=== PATIENT | male | born 1985 | race Caucasian/White ===

== ENCOUNTER 2020-07-23 15:38 | Outpatient (REF) | payer MEDICARE, MEDICAID, SELFPAY ==
[2020-07-23 17:30] LABS: Basophils Percent Auto 0.5 % (0-2); Imm Gran Abs Auto 0.04 X10*3/uL (0.00-0.03); Imm Gran Pct Auto 0.7 % (0.0-0.4); Monocytes Absolute Auto 0.3 X10*3/uL (0.1-1.2); Red Cell Distribution Width 14.4 % (11.0-16.0); SCAN SMEAR FLAG 1
[2020-07-23 17:32] LABS: Eosinophils Absolute Auto 0.1 X10*3/uL (0.0-0.4); Eosinophils Percent Auto 2.1 % (0-4); Hematocrit 40.4 % (42-52); Hemoglobin 12.7 g/dl (14.0-18.0); Lymphocytes Absolute Auto 1.2 X10*3/uL (1.2-4.9); Lymphocytes Percent Auto 20.9 % (20-40); Mean Corpuscular HGB Conc 31.4 g/dl (31.0-36.0); Mean Corpuscular Hemoglobin 27.9 pg (27.0-33.0); Mean Corpuscular Volume 88.6 fL (80-98); Mean Platelet Volume 13.7 fL (9.4-12.4); Monocytes Percent Auto 5.3 % (2-11); Neutrophils Percent Auto 70.5 % (45-73); Platelet Count 197 X10*3/uL (160-400); Red Blood Count 4.56 X10*6/uL (4.60-5.80); White Blood Count 5.7 X10*3/uL (4.8-10.8)
[2020-07-23 17:35] LABS: PLT ABN DIST 1
[2020-07-23 17:36] LABS: MANUAL DIFF FLAG NO
[2020-07-23 17:45] LABS: Estimated Average Glucose 183 mg/dL
[2020-07-23 17:52] LABS: Alanine Aminotransferase 38 U/L (0-40); Albumin Level 4.2 g/dL (3.5-5.0); Alkaline Phosphatase 85 U/L (39-117); Anion Gap 15 (12-20); Aspartate Amino Transferase 25 U/L (5-37); Bilirubin Total 0.4 mg/dL (0.0-1.0); Blood Urea Nitrogen 9 mg/dL (9-16); Calcium 9.7 mg/dL (8.4-10.2); Carbon Dioxide 27 mmol/L (22-29); Chloride 104 mmol/L (96-108); Cholesterol 150 mg/dL; Estimated Glomerular Filt Rate > 60; Glucose Random 132 mg/dL (60-115); HDL Cholesterol 35 mg/dL; LDL Cholesterol Calculated 94 mg/dl; Potassium 4.2 mmol/L (3.3-5.1); Sodium 142 mmol/L (135-145); Total Protein 6.9 g/dL (6.5-8.0); Triglycerides 108 mg/dL
== END 2020-07-23 15:39 | disposition home or self-care (01) ==
LOC: HO.MANLDS 15:38
PROVIDERS: PCP Internal Medicine; Visit Provider Physician Assistant
DX: L97.909 Non-pressure chronic ulcer of unspecified part of unspecified lower leg with unspecified severity (principal); E11.9 Type 2 diabetes mellitus without complications
CPT/HCPCS: 36415; 80053; 80061; 83036; 85025; 87071; 87205

== ENCOUNTER 2020-08-20 10:01 | Outpatient (REF) | payer MEDICARE, MEDICAID, SELFPAY ==
[2020-08-20 13:28] LABS: Estimated Average Glucose 154 mg/dL
== END 2020-08-20 10:02 | disposition home or self-care (01) ==
LOC: HO.MANLDS 10:01
PROVIDERS: PCP Internal Medicine; Visit Provider Physician Assistant
DX: E11.21 Type 2 diabetes mellitus with diabetic nephropathy (principal)
CPT/HCPCS: 36415; 83036

== ENCOUNTER 2021-11-09 15:19 | Outpatient (REF) | payer MEDICARE, MEDICAID, SELFPAY ==
[2021-11-09 17:42] LABS: MANUAL DIFF FLAG NO
[2021-11-09 17:44] LABS: Basophils Percent Auto 0.2 % (0-2); Eosinophils Absolute Auto 0.1 X10*3/uL (0.0-0.4); Eosinophils Percent Auto 1.2 % (0-4); Hematocrit 40.2 % (42.0-52.0); Hemoglobin 12.8 g/dl (14.0-18.0); Imm Gran Abs Auto 0.05 X10*3/uL (0.00-0.03); Lymphocytes Absolute Auto 1.2 X10*3/uL (1.2-4.9); Mean Corpuscular HGB Conc 31.8 g/dl (31.0-36.0); Mean Corpuscular Hemoglobin 27.6 pg (27.0-33.0); Mean Corpuscular Volume 86.8 fL (80.0-98.0); Mean Platelet Volume 12.4 fL (9.4-12.4); Monocytes Absolute Auto 0.2 X10*3/uL (0.1-1.2); Monocytes Percent Auto 4.6 % (2-11); Neutrophils Absolute Auto 3.5 x10*3/uL (2.0-8.3); Platelet Count 205 X10*3/uL (160-400); Red Blood Count 4.63 X10*6/uL (4.60-5.80); Red Cell Distribution Width 15.1 % (11.0-16.0)
[2021-11-09 17:58] LABS: Alanine Aminotransferase 21 U/L (0-40); Albumin Level 4.4 g/dL (3.5-5.0); Alkaline Phosphatase 94 U/L (39-117); Anion Gap 10 (12-20); Aspartate Amino Transferase 14 U/L (5-37); Bilirubin Total 0.4 mg/dL (0.0-1.0); Blood Urea Nitrogen 13 mg/dL (9-16); Calcium 9.8 mg/dL (8.4-10.2); Carbon Dioxide 31 mmol/L (22-29); Chloride 105 mmol/L (96-108); Cholesterol 161 mg/dL; Estimated Glomerular Filt Rate > 60; Glucose Random 101 mg/dL (60-115); HDL Cholesterol 35 mg/dL; LDL Cholesterol Calculated 103 mg/dl; Potassium 4.1 mmol/L (3.3-5.1); Sodium 142 mmol/L (135-145); Total Protein 7.4 g/dL (6.5-8.0); Triglycerides 118 mg/dL
[2021-11-09 18:00] LABS: Estimated Average Glucose 120 mg/dL; Hemoglobin A1c % 5.8 %
== END 2021-11-09 15:20 | disposition home or self-care (01) ==
LOC: HO.MANLDS 15:19
PROVIDERS: Visit Provider Physician Assistant
DX: Z00.00 Encounter for general adult medical examination without abnormal findings (principal)
CPT/HCPCS: 36415; 80053; 80061; 83036; 85025

== ENCOUNTER 2021-12-28 11:08 | Outpatient (REF) | payer MEDICARE, MEDICAID, SELFPAY ==
[2021-12-28 14:43] LABS: Alanine Aminotransferase 26 U/L (0-40); Albumin Level 4.3 g/dL (3.5-5.0); Alkaline Phosphatase 94 U/L (39-117); Anion Gap 15 (12-20); Aspartate Amino Transferase 16 U/L (5-37); Bilirubin Total 0.6 mg/dL (0.0-1.0); Blood Urea Nitrogen 20 mg/dL (9-16); Calcium 10.3 mg/dL (8.4-10.2); Carbon Dioxide 31 mmol/L (22-29); Chloride 101 mmol/L (96-108); Estimated Glomerular Filt Rate > 60; Glucose Random 141 mg/dL (60-115); Potassium 4.3 mmol/L (3.3-5.1); Sodium 143 mmol/L (135-145); Total Protein 7.5 g/dL (6.5-8.0)
== END 2021-12-28 11:09 | disposition home or self-care (01) ==
LOC: HO.MANLDS 11:08
PROVIDERS: Visit Provider Physician Assistant
DX: R60.0 Localized edema (principal)
CPT/HCPCS: 36415; 80053

== ENCOUNTER 2022-10-27 14:00 | Outpatient (REF) | payer MEDICARE, MEDICAID, SELFPAY ==
[2022-10-27 17:58] LABS: Basophils Percent Auto 0.5 % (0-2); Imm Gran Abs Auto 0.03 X10*3/uL (0.00-0.03); SCAN SMEAR FLAG 1
[2022-10-27 18:00] LABS: Eosinophils Percent Auto 0.8 % (0-4); Hematocrit 43.8 % (42.0-52.0); Imm Gran Pct Auto 0.8 % (0.0-0.4); Lymphocytes Absolute Auto 1.1 X10*3/uL (1.2-4.9); Lymphocytes Percent Auto 27.3 % (20-40); MANUAL DIFF FLAG SCAN; Mean Corpuscular Hemoglobin 27.3 pg (27.0-33.0); Mean Corpuscular Volume 85.5 fL (80.0-98.0); Mean Platelet Volume 13.2 fL (9.4-12.4); Monocytes Absolute Auto 0.2 X10*3/uL (0.1-1.2); Monocytes Percent Auto 5.5 % (2-11); Neutrophils Absolute Auto 2.6 x10*3/uL (2.0-8.3); Neutrophils Percent Auto 65.1 % (45-73); Platelet Count 150 X10*3/uL (160-400); Red Blood Count 5.12 X10*6/uL (4.60-5.80); Red Cell Distribution Width 14.4 % (11.0-16.0)
[2022-10-27 18:08] LABS: PLT ABN DIST 1
[2022-10-27 18:12] LABS: Alanine Aminotransferase 63 U/L (0-40); Alkaline Phosphatase 102 U/L (39-117); Amylase 27 U/L (28-100); Anion Gap 13 (12-20); Aspartate Amino Transferase 33 U/L (5-37); Bilirubin Total 0.7 mg/dL (0.0-1.0); Blood Urea Nitrogen 11 mg/dL (9-16); Calcium 9.9 mg/dL (8.4-10.2); Carbon Dioxide 26 mmol/L (22-29); Chloride 105 mmol/L (96-108); Estimated Glomerular Filt Rate > 60; Gamma Glutamyl Transpeptidase 43 U/L (11-51); Glucose Random 242 mg/dL (60-115); Lipase 21 U/L (8-78); Potassium 3.9 mmol/L (3.3-5.1); Sodium 140 mmol/L (135-145); Total Protein 6.7 g/dL (6.5-8.0)
[2022-10-27 18:13] LABS: Estimated Average Glucose 280 mg/dL; Hemoglobin A1c % 11.4 %
[2022-10-27 18:15] LABS: SLIDE REVIEW VERIFIED
[2022-10-27 18:38] LABS: Erythrocyte Sedimentation Rate 2 MM/HR (0-15)
== END 2022-10-27 14:01 | disposition home or self-care (01) ==
LOC: HO.MANLDS 14:00
PROVIDERS: Visit Provider Physician Assistant
DX: A06.1 Chronic intestinal amebiasis (principal)
CPT/HCPCS: 36415; 80053; 82150; 82977; 83036; 83690; 85025; 85652

== ENCOUNTER 2022-10-27 14:11 | Outpatient (REF) | payer MEDICARE, MEDICAID, SELFPAY | END 2022-10-27 14:12 | disposition home or self-care (01) | LOC: HO.MANLDS 14:11 | PROVIDERS: Visit Provider Physician Assistant | DX: Z13.89 Encounter for screening for other disorder (principal) ==

== ENCOUNTER 2022-10-29 08:00 | Outpatient (REF) | payer MEDICARE, MEDICAID, SELFPAY ==
[2022-10-29 23:55] LABS: CDiff Gene PCR POSITIVE (Negative)
[2022-10-30 00:17] LABS: CDIFF Internal ctrl Dots and bkg OK (V); CDiff Toxin Negative (Negative)
[2022-10-30 10:51] LABS: Adenovirus F 40/41 Not Detected (Not Detect.); Astrovirus Not Detected (Not Detect.); Campylobacter Not Detected (Not Detect.); Cryptosporidium Not Detected (Not Detect.); Cyclospora cayetanensis Not Detected (Not Detect.); E. coli EAEC Not Detected (Not Detect.); E. coli EPEC Not Detected (Not Detect.); E. coli ETEC Not Detected (Not Detect.); E. coli STEC Not Detected (Not Detect.); Entamoeba histolytica Not Detected (Not Detect.); Giardia lamblia Not Detected (Not Detect.); Norovirus GI/GII Not Detected (Not Detect.); Plesiomonas shigelloides Not Detected (Not Detect.); Rotavirus A Not Detected (Not Detect.); Salmonella Not Detected (Not Detect.); Sapovirus Not Detected (Not Detect.); Shigella sp./EIEC Not Detected (Not Detect.); Vibrio Not Detected (Not Detect.); Vibrio Cholerae Not Detected (Not Detect.); Yersinia enterocolitica Not Detected (Not Detect.)
== END 2022-10-29 08:01 | disposition home or self-care (01) ==
LOC: HO.MANLNP 08:00
PROVIDERS: Visit Provider Physician Assistant
DX: A06.1 Chronic intestinal amebiasis (principal)
CPT/HCPCS: 87324; 87493; 87507